=== PATIENT | female | born 1965 | race African-American/Black ===

== ENCOUNTER 2021-01-01 19:01 | Emergency (ER) | payer MEDICAID ==
[~2021-01-01] VITALS: Ht 165.1 cm; Wt 111.0 kg
[2021-01-01 19:13] VITALS: BP 161/83
[2021-01-01] MEDS ORDERED: IBUPROFEN 600MG TABLET PO ONE (20:15)
[2021-01-01] MEDS ORDERED: NAPR-681 MT (22:08)
== END 2021-01-01 22:54 | disposition home or self-care (01) ==
LOC: ER 19:18
DX: S93.492A Sprain of other ligament of left ankle, initial encounter (principal); X58.XXXA Exposure to other specified factors, initial encounter; Y93.89 Activity, other specified; Y92.89 Other specified places as the place of occurrence of the external cause
CPT/HCPCS: 29515; 73610; 99283